=== PATIENT | male | born 1985 | race American Indian/Alaskan Native ===

== ENCOUNTER 2020-11-20 09:34 | Emergency (ER) | payer SELFPAY ==
[2020-11-20 10:22] VITALS: BP 150/73
[2020-11-20 11:15] LABS: Bilirubin,Urine NEG (Negative); Blood,Urine LG (Negative); Color,Urine Yellow (Yellow); Mucus,Urine FEW /HPF; RBC,Urine > 182.0 /HPF (0.0-6.0)
[2020-11-20 11:16] LABS: WBC,Urine > 182.0 /HPF (0.0-6.0)
[2020-11-20] MEDS ORDERED: LIDOCAINE-MPF (1%) 10 MG/1 ML VIAL 5 ML INFILTRATI ONE (11:17)
--- NOTE | 2020-11-20 11:17 | Emergency Department Report ---
ED Male HPI - General Chief complaint: Urogenital-Male Stated complaint: MALE CONCERNS Time Seen by Provider: 11/20/20 11:03 Source: patient Mode of arrival: Ambulatory Limitations: No Limitations - History of Present Illness Initial comments: Patient is a 35-year-old male presents emergency room with complaints of hematuria that began 6 days ago. He has associated discomfort at the end of urination and a milky discharge. He reports he is only sexually active with his fiance. He denies any abdominal pain, back pain, fever, nausea, vomiting, d iarrhea, urinary retention, pain or swelling in the testicles. No past medical history. No allergies to medications. - Related Data Previous Rx's Medication Instructions Recorded Last Taken Type Ciprofloxacin HCl [Ciprofloxacin 500 mg PO BID 7 Days #28 tablet 11/20/20 Unknown Rx TAB] Doxycycline Hyclate [Doxycycline 100 mg PO BID 7 Days #14 tab 11/20/20 Unknown Rx Hyclate TAB] Allergies Allergy/AdvReac Type Severity Reaction Status Date / Time No Known Allergies Allergy Unverified 11/20/20 10:17 ED Review of Systems ROS: Stated complaint: MALE CONCERNS Other details as noted in HPI Comment: All other systems reviewed and negative ED Past Medical Hx - Past Medical History Previous Medical History?: No - Surgical History Past Surgical History?: No - Medications Home Medications: Home Medications Medication Instructions Recorded Confirmed Last Taken Type Ciprofloxacin HCl [Ciprofloxacin 500 mg PO BID 7 Days #28 tablet 11/20/20 Unknown Rx TAB] Doxycycline Hyclate [Doxycycline 100 mg PO BID 7 Days #14 tab 11/20/20 Unknown Rx Hyclate TAB] ED Physical Exam - General Limitations: No Limitations General appearance: alert, in no apparent distress - Head Head exam: Present: atraumatic, normocephalic - Eye Eye exam: Present: normal appearance - ENT ENT exam: Present: mucous membranes moist - Respiratory Respiratory exam: Present: normal lung sounds bilaterally. Absent: respiratory distress, wheezes, rales, rhonchi, stridor, chest wall tenderness, accessory muscle use, decreased breath sounds, prolonged expiratory - Cardiovascular Cardiovascular Exam: Present: regular rate, normal rhythm, normal heart sounds. Absent: systolic murmur, diastolic murmur, rubs, gallop - GI/Abdominal GI/Abdominal exam: Present: soft, normal bowel sounds. Absent: distended, tenderness, guarding, rebound, rigid - Back Exam Back exam: Absent: CVA tenderness (R), CVA tenderness (L) - Neurological Exam Neurological exam: Present: alert, oriented X3 - Psychiatric Psychiatric exam: Present: normal affect, normal mood - Skin Skin exam: Present: warm, dry, intact ED Course Vital Signs 11/20/20 10:20 Temperature 99.2 F Pulse Rate 79 Respiratory 18 Rate Blood Pressure 150/73 O2 Sat by Pulse 95 Oximetry ED Medical Decision Making - Medical Decision Making Patient is a 35-year-old male presents emergency room with complaints of hematuria that began 6 days ago. He has associated discomfort at the end of urination and a milky discharge. He reports he is only sexually active with his fiance. He denies any abdominal pain, back pain, fever, nausea, vomiting, diarrhea, urinary retention, pain or swelling in the testicles. No past medical history. No allergies to medications. Vitals are stable. No abdominal tenderness on exam, no guarding, no rebound, rigidity, nor bowel sounds, no peritoneal signs. UA shows significant white blood cells, significant red blood cells, leukocyte esterase. given that the patient is a young sexually active male, this could be due to STD. Urine culture was sent. Patient given ceftriaxone IM on the emergency department. Patient given prescription for doxycycline and ciprofloxacin. Advised patient please take medication as prescribed. Follow-up with your primary care doctor. Follow-up with the clinic or health department in order to receive full STD panel. Please have any partner tested and treated as well. Avoid sexual intercourse. Return to emergency room for any new or worsening symptoms. Critical care attestation.: If time is entered above; I have spent that time in minutes in the direct care of this critically ill patient, excluding procedure time. ED Disposition Clinical Impression: Bacteriuria Hematuria Qualifiers: Hematuria type: unspecified type Qualified Code(s): R31.9 - Hematuria, unspecified Disposition: DC-01 TO HOME OR SELFCARE Is pt being admited?: No Does the pt Need Aspirin: No Condition: Stable Additional Instructions: Please take medication as prescribed. Follow-up with your primary care doctor. Follow-up with the clinic or health department in order to receive full STD panel. Please have any partner tested and treated as well. Avoid sexual intercourse. Return to emergency room for any new or worsening symptoms. walk in clinic for STD testing: [facility] in [place], [place] Address: [address] [place] [address], [place] [address] Prescriptions: Ciprofloxacin HCl [Ciprofloxacin TAB] 500 mg PO BID 7 Days #28 tablet Doxycycline Hyclate [Doxycycline Hyclate TAB] 100 mg PO BID 7 Days #14 tab Referrals: [facility] [Outside] - 2-3 Days MARIA L KANG MD [Staff Physician] - 2-[address] [facility] [Provider Group] - 2-3 Days Time of Disposition: 11:19 Print Language: [place] CITIZ[place]
== END 2020-11-20 12:15 | disposition home or self-care (01) ==
LOC: ED 09:34
DX: R82.71 Bacteriuria (principal); R31.9 Hematuria, unspecified; Z79.899 Other long term (current) drug therapy
CPT/HCPCS: 81001; 96372; 99283; J0696